=== PATIENT | male | born 1970 | race Caucasian/White ===

== ENCOUNTER 2019-08-15 16:24 | Outpatient (CLI) | payer OTHER | END 2019-08-15 16:25 | disposition short-term general hospital (02) | LOC: EMS 16:24 | PROVIDERS: ATTEND Surgery | DX: R07.9 Chest pain, unspecified (principal) | CPT/HCPCS: A0425; A0427 ==

== ENCOUNTER 2022-01-13 21:42 | Emergency (ER) | payer OTHER ==
--- NOTE | 2022-01-14 00:11 | ED Physician Documentation ---
PD HPI HEENT - Stated complaint Stated Complaint: CLOGGED EAR - Chief complaint Chief Complaint: Heent - History obtained from History obtained from: Patient - History of Present Illness Timing - onset: Today - Additional information Additional information: 51-year-old male presents for clogged ear that occurred today. 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 He states that when he took out his earplugs today he noticed he could not hear out of his right ear and felt off balance. He attempted to flush out his ear at home however it did not remove any earwax and instead he felt like he had water behind his ear and still could not hear. Patient denies other symptoms at this time. Review of Systems Ten Systems: 10 systems reviewed and negative Constitutional: denies: Fever Ears: reports: Loss of hearing. denies: Ear pain, Drainage/discharge, Tinnitus/ringing, Foreign body Nose: denies: Rhinorrhea / runny nose PD PAST MEDICAL HISTORY - Past Medical History Past Medical History: Yes Psych: Anxiety - Past Surgical History Past Surgical History: Yes Ortho: Arthroscopic surgery, Spine surgery - Allergies Allergies/Adverse Reactions: Allergies Allergy/AdvReac Type Severity Reaction Status Date / Time No Known Drug Allergies Allergy Verified 01/13/22 21:49 - Social History Does the pt smoke?: No Smoking Status: Never smoker Does the pt drink ETOH?: No Does the pt have substance abuse?: No - Immunizations Immunizations are current?: Yes PD ED PE NORMAL - Vitals Vital signs reviewed: Yes - General General: Alert and oriented X 3, No acute distress, Well developed/nourished - HEENT HEENT: Atraumatic, PERRL, EOMI, Moist mucous membranes, Other (large wax burden R ear) - Cardiac Cardiac: RRR, No gallop, Strong equal pulses - Respiratory Respiratory: No respiratory distress, Clear bilaterally - Abdomen Abdomen: Soft, Non tender, Non distended - Derm Derm: Normal color, Warm and dry, No rash - Extremities Extremities: No deformity, No tenderness to palpate, Normal ROM s pain - Neuro Neuro: Alert and oriented X 3, signal mechanic 2-12 intact, No motor deficit, No sensory deficit, Normal speech - Psych Psych: Normal mood, Normal affect Results - Vitals Vitals: Vital Signs - 24 hr 01/13/22 01/14/22 21:47 00:17 Temperature 36.4 C L 36.5 C Heart Rate 70 68 Respiratory 12 15 Rate Blood Pressure 122/82 H 125/72 O2 Saturation 100 99 Oxygen O2 Source Room air PD MEDICAL DECISION MAKING - ED course ED course: Cerumen impaction. Irrigated by nursing staff with removal of large wax burden and complete taoism of hearing. Repeat ear exam shows intact tympanic mem branes, no evidence of canal injury. Patient was instructed by nursing staff on how to remove wax from his ears Departure - Departure Disposition: 01 Home, Self Care Clinical Impression: Impacted cerumen of right ear Condition: Stable Instructions: Earwax Impacted, ED Wax Ear Home Removal Discharge Date/Time: 01/14/22 00:17
[2022-01-14 00:18] VITALS: BP 125/72
== END 2022-01-14 00:17 | disposition home or self-care (01) ==
LOC: ED 21:42
DX: H61.21 Impacted cerumen, right ear (principal)
CPT/HCPCS: 69209; 99282

== ENCOUNTER 2022-12-24 17:18 | Emergency (ER) | payer OTHER ==
[2022-12-24 17:41] VITALS: BP 151/97
[2022-12-24] MEDS ORDERED: IBUPROFEN 600 MG TABLET PO STA (18:24)
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
== END 2022-12-24 20:02 | disposition home or self-care (01) ==
LOC: ED 17:18
DX: S80.11XA Contusion of right lower leg, initial encounter (principal); M54.50 Low back pain, unspecified; V23.09XA Other motorcycle driver injured in collision with car, pick-up truck or van in nontraffic accident, initial encounter; Y93.55 Activity, bike riding; Y92.481 Parking lot as the place of occurrence of the external cause
CPT/HCPCS: 73590; 74176; 99283; 99284; A9270

== ENCOUNTER 2023-01-07 08:48 | Outpatient (CLI) | payer OTHER ==
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
== END 2023-01-07 08:49 | disposition home or self-care (01) ==
LOC: DI.S 08:48
PROVIDERS: ATTEND Specialist
DX: M47.812 Spondylosis without myelopathy or radiculopathy, cervical region (principal)